=== PATIENT | female | born 1960 | race Caucasian/White ===

== ENCOUNTER 2016-07-15 20:52 | Emergency (ER) | payer OTHER ==
[~2016-07-15] VITALS: Ht 162.6 cm; Wt 90.7 kg
[~2016-07-15 20:52] MED LIST: ABILIFY 5 MG TAB5 M1 PO; ACCUNEB SO1.25 MG/1 INH; ALEVE220 MG PO; ASPIR 8181 M1 PO; CIPROFLOXACIN500 M1 PO; DARVOCET-N 1001 EACH PO; EXCEDRIN CAPLE1 EACH PO; FLUOXETINE DR90 MG PO; HYDROCHLOROTHIA25 M2 PO; METFORMIN HCL500 MG PO; NORCO 5-325 TA1 EACH PO; PROZAC40 MG PO; SYNTHROID25 MCG PO; VERAPAMIL ER120 M1; VERAPAMIL HCL 880 M1 PO; ZESTRIL40 MG PO; ZOFRAN ODT4 MG PO; ZOFRAN4 MG PO; [UNRECOGNIZED DRUG - OTHER]
[2016-07-15] MEDS ORDERED: IBUPROFEN 800800 M1 PO (21:00)
[2016-07-15] MEDS ORDERED: NATURE-THROID32.5 MG PO (21:00)
[2016-07-15 21:25] VITALS: BP 147/90
[2016-07-15] MEDS ORDERED: PREDNISONE 20 M20 MG PO (21:25)
[2016-07-15] MEDS ORDERED: TESSALON PERLE100 MG PO (21:25)
[2016-07-15] MEDS ORDERED: IBUPROFEN 600600 M1 PO (21:25)
== END 2016-07-15 21:38 | disposition home or self-care (01) ==
LOC: ER 20:52
DX: J06.9 Acute upper respiratory infection, unspecified (principal); G43.809 Other migraine, not intractable, without status migrainosus; F32.9 Major depressive disorder, single episode, unspecified; I10 Essential (primary) hypertension; E03.9 Hypothyroidism, unspecified; Z88.5 Allergy status to narcotic agent; Z87.442 Personal history of urinary calculi; Z85.3 Personal history of malignant neoplasm of breast; Z90.710 Acquired absence of both cervix and uterus; Z88.8 Allergy status to other drugs, medicaments and biological substances

== ENCOUNTER 2016-10-09 18:09 | Emergency (ER) | payer OTHER ==
[~2016-10-09] VITALS: Ht 160 cm; Wt 88.9 kg
[~2016-10-09 18:09] MED LIST changes: +IBUPROFEN 600600 M1 PO; +IBUPROFEN 800800 M1 PO; +NATURE-THROID32.5 MG PO; +PREDNISONE 20 M20 MG PO; +TESSALON PERLE100 MG PO
[2016-10-09] MEDS ORDERED: FLEXERIL PO (19:37)
[2016-10-09] MEDS ORDERED: ONDANSETRON HCL4 M2 PO (19:38)
[2016-10-09] MEDS ORDERED: NORCO 5-325 TA1 EACH PO (19:40)
[2016-10-09 20:08] VITALS: BP 136/73
== END 2016-10-09 20:09 | disposition home or self-care (01) ==
LOC: ER 18:09
DX: S16.1XXA Strain of muscle, fascia and tendon at neck level, initial encounter (principal); S09.8XXA Other specified injuries of head, initial encounter; S39.012A Strain of muscle, fascia and tendon of lower back, initial encounter; F32.9 Major depressive disorder, single episode, unspecified; I10 Essential (primary) hypertension; E03.9 Hypothyroidism, unspecified; Z90.710 Acquired absence of both cervix and uterus; Z98.890 Other specified postprocedural states; Z88.5 Allergy status to narcotic agent; Z88.8 Allergy status to other drugs, medicaments and biological substances; V49.88XA Car occupant (driver) (passenger) injured in other specified transport accidents, initial encounter; Y93.89 Activity, other specified; Y92.89 Other specified places as the place of occurrence of the external cause; Y99.8 Other external cause status